=== PATIENT | male | born 1965 | race Caucasian/White ===

== ENCOUNTER 2017-09-27 11:26 | Day surgery (SDC) | payer BC ==
--- NOTE | ~2017-09-27 | OP ---
PATIENT NAME: JACKSON LANIER MEDICAL RECORD: [id number] :65 LOCATION:[facility] ADMISSION DATE: SURGEON: ALBERTA NAPIER MD DATE OF OPERATION: 09/27/2017 PROCEDURE: This is an EGD with fecal transplantation. LADLE POURER: Alberta Napier MD SCOPE: Olympus video colonoscope. MEDICATIONS: Per TIVA anesthesia. The patient received 300 mg of propofol for this procedure IV push, O2 of 4 liters, Zofran 4 mg IV push. INDICATION FOR THE PROCEDURE: Recurrent Clostridium difficile toxin colitis. The patient also has ulcerative colitis. FINDINGS: Informed consent was given. The patient was made comfortable with the above medications. After reaching an adequate level of sedation by slow IV push, the patient was placed on his left side. The endoscope was then advanced under direct visualization through the posterior pharyngeal area and advanced to the distal esophagus. A nonstenotic Schatzki's ring was seen in this area followed by a small hiatal hernia noted both on direct and retroflex views. On entering the stomach, minimal inflammation was seen throughout the entire gastric area. No biopsies of course were obtained. On entering the duodenum, the scope was then advanced through the duodenum up to 80 cm within the mid small bowel. At this point, about 1 ounce of fecal donor material was injected into this area followed by 60 mL of water. The scope was then withdrawn. The patient tolerated the procedure well. IMPRESSION: The patient with recurrent Clostridium difficile toxin colitis in the setting of ulcerative colitis today for a fecal transplantation with details as above. PLAN: The patient should decrease activity tonight, eat a very soft bland diet, no anti-inflammatory drugs or aspirin please, take no antibiotics. We will keep in touch with Dr. Lanier over the next couple of days to check on his progress. TRANSINT:[id number] Voice Confirmation ID: [id number] DOCUMENT ID: [id number] ALBERTA NAPIER MD at 1543 CC: [id number] DICTATION DATE: 09/27/171722 WAREHOUSE LOADER: 09/27/17 [id number] [facility] 09/27/17 [place] [address]
[2017-09-27] MEDS ORDERED: PEPCID AC20 MG PO (15:00)
[2017-09-27 15:01] VITALS: BP 115/46; BMI 21.8
== END 2017-09-27 18:30 | disposition home or self-care (01) ==
LOC: D.OPS 11:26
DX: A04.71 Enterocolitis due to Clostridium difficile, recurrent (principal); K21.9 Gastro-esophageal reflux disease without esophagitis; Z01.812 Encounter for preprocedural laboratory examination